=== PATIENT | male | born 1990 | race Native Hawaiian/Other Pacific Islander ===

== ENCOUNTER 2019-06-18 20:01 | Emergency (ER) | payer MEDICAID ==
[~2019-06-18] VITALS: Ht 185.4 cm; Wt 154.2 kg
[2019-06-18 21:05] LABS: Basophils # (auto) 0.1 uL; Basophils % (auto) 0.6 % (0.0-2.0); Eosinophils # (auto) 0.4 uL; Eosinophils % (auto) 2.9 % (0.0-7.0); Hematocrit 44.5 % (41.0-53.0); Hemoglobin 14.9 g/dL (13.5-17.5); Lymphocytes # (auto) 1.4 uL; Lymphocytes % (auto) 10.5 % (10.0-50.0); Mean Corpuscular Hemoglobin 28.1 pg (28.0-32.0); Mean Corpuscular Hgb Conc. 33.6 g/dL (32.0-36.0); Mean Corpuscular Volume 83.8 fL (80.0-100.0); Monocytes # (auto) 0.6 uL; Monocytes % (auto) 4.2 % (0.0-12.0); Neutrophils # (auto) 10.9 uL; Neutrophils % (auto) 81.8 % (37.0-80.0); Platelet Count (auto) 214 10^3/uL (140-450); Red Blood Cells 5.31 10^6/uL (4.5-5.90); White Blood Cell 13.3 10^3/uL (4.4-10.8)
[2019-06-18 21:22] LABS: BUN/Creatinine Ratio 8.4; Calcium 8.3 mg/dL (8.5-10.1); Potassium 4.1 mmol/L (3.5-5.1)
[2019-06-18 21:25] LABS: Bilirubin, Total 0.3 mg/dL (0.2-1.0)
[2019-06-18] MEDS ORDERED: LEVETIRACETAM INJ 1,000 MG in D5W 5% 100 ML IV ONE (21:45)
[2019-06-18] MEDS ORDERED: LORazepam 2MG/ML-1ML VIAL IV ONE (21:45)
[2019-06-18] MEDS ORDERED: LEVETIRACETAM 500 MG/5ML INJ IV ONE (22:11)
[2019-06-18 22:58] VITALS: BP 132/81
== END 2019-06-18 23:36 | disposition home or self-care (01) ==
LOC: ER 20:01 → EDBD 20:01 → ER 23:36
DX: G40.309 Generalized idiopathic epilepsy and epileptic syndromes, not intractable, without status epilepticus (principal); N18.9 Chronic kidney disease, unspecified
CPT/HCPCS: 36415; 70450; 80053; 80164; 80320; 85025; 96365; 96375; 99284; J1953; J2060; J7060

== ENCOUNTER 2020-05-17 21:17 | Emergency (ER) | payer SELFPAY ==
[~2020-05-17] VITALS: Ht 182.9 cm; Wt 172.4 kg
[2020-05-17 22:19] LABS: Basophils # (auto) 0.1 10 ^3/uL (0-0.2); Basophils % (auto) 0.7 % (0.0-2.0); Eosinophils # (auto) 0.5 10 ^3/uL (0-0.8); Hematocrit 42.1 % (41.0-53.0); Hemoglobin 14.2 g/dL (13.5-17.5); Lymphocytes # (auto) 1.9 10 ^3/uL (0.4-5.4); Lymphocytes % (auto) 12.3 % (10.0-50.0); Mean Corpuscular Hemoglobin 28.6 pg (28.0-32.0); Mean Corpuscular Hgb Conc. 33.8 g/dL (32.0-36.0); Mean Corpuscular Volume 84.5 fL (80.0-100.0); Monocytes # (auto) 0.6 10 ^3/uL (0-1.3); Monocytes % (auto) 4.2 % (0.0-12.0); Neutrophils % (auto) 79.8 % (37.0-80.0); Platelet Count (auto) 265 10^3/uL (140-450); Red Blood Cells 4.98 10^6/uL (4.5-5.90); Red Cell Distribution Width 14.6 % (11.8-14.3); White Blood Cell 15.1 10^3/uL (4.4-10.8)
[2020-05-17 23:06] LABS: Albumin 3.2 g/dL (3.4-5.0); Anion Gap 11 (5-15); Blood Alcohol < 3.0 mg/dL (0-5); Blood Urea Nitrogen 35 mg/dL (7-18); Calcium 8.3 mg/dL (8.5-10.1); Carbon Dioxide 23 mmol/L (21-32); Chloride 101 mmol/L (98-107); Glucose 263 mg/dL (74-106); Sodium 135 mmol/L (136-145)
[2020-05-17 23:10] LABS: Alanine Aminotransferase 28 U/L (16-61); Alkaline Phosphatase 139 U/L (45-117); Aspartate Aminotransferase 16 U/L (15-37); BUN/Creatinine Ratio 6.8; Bilirubin, Total 0.3 mg/dL (0.2-1.0); GFR African American 17 mL/min; GFR Non-African American 14 mL/min; Total Protein 7.4 g/dL (6.4-8.2)
[2020-05-18 00:01] VITALS: BP 135/96
[2020-05-18] MEDS ORDERED: levETIRAcetam 500 MG/5ML INJ IV ONE (01:11)
== END 2020-05-18 02:02 | disposition home or self-care (01) ==
LOC: EDBD 21:17 → ER 21:18
DX: G40.309 Generalized idiopathic epilepsy and epileptic syndromes, not intractable, without status epilepticus (principal); N18.9 Chronic kidney disease, unspecified; F17.210 Nicotine dependence, cigarettes, uncomplicated
CPT/HCPCS: 36415; 80053; 80320; 85025; 96365; 99284; J1953